=== PATIENT | female | born 1950 | race Caucasian/White ===

== ENCOUNTER → 2017-03-23 | Outpatient (CLI) | payer BC ==
[~2017-03-23] MED LIST: AMLO10TA2 PO; APIX5TAB PO; CARV-39 PO; ESCI10TA10 PO; FURO40TA6 PO; LISI-170 PO; POTA20TA14 PO
== END | disposition home or self-care (01) ==
LOC: CVU 07:37
PROVIDERS: ATTEND Internal Medicine Cardiovascular Disease
DX: I51.7 Cardiomegaly (principal); I48.0 Paroxysmal atrial fibrillation
CPT/HCPCS: C8929

== ENCOUNTER → 2018-06-24 | Outpatient (CLI) | payer BC ==
[~2018-06-24] MED LIST changes: -AMLO10TA2 PO; +AMLO10TA8 PO; +REGADENOSON 0.4 MG/5 ML SYRINGE ONE
== END | disposition home or self-care (01) ==
LOC: CFH 07:31
PROVIDERS: ATTEND Internal Medicine Cardiovascular Disease
DX: I11.0 Hypertensive heart disease with heart failure (principal); I48.0 Paroxysmal atrial fibrillation
CPT/HCPCS: 78452; 93017; A9502; J2785

== ENCOUNTER 2018-07-08 08:54 | Day surgery (SDC) | payer BC ==
[~2018-07-08] VITALS: Ht 170.2 cm; Wt 149.5 kg
[~2018-07-08 08:54] MED LIST changes: -REGADENOSON 0.4 MG/5 ML SYRINGE ONE
[2018-07-08 09:17] VITALS: BP 131/65
[2018-07-08] MEDS ORDERED: PROPOFOL 10 MG/ML, 20ML ONE (15:37)
== END 2018-07-08 12:04 | disposition home or self-care (01) ==
LOC: CACL 08:54
PROVIDERS: ATTEND Internal Medicine Cardiovascular Disease
DX: I48.91 Unspecified atrial fibrillation (principal); F17.210 Nicotine dependence, cigarettes, uncomplicated; I48.0 Paroxysmal atrial fibrillation; E66.01 Morbid (severe) obesity due to excess calories; I11.0 Hypertensive heart disease with heart failure; I50.32 Chronic diastolic (congestive) heart failure; E78.5 Hyperlipidemia, unspecified; Z86.73 Personal history of transient ischemic attack (TIA), and cerebral infarction without residual deficits; Z79.01 Long term (current) use of anticoagulants; Z68.43 Body mass index [BMI] 50.0-59.9, adult
CPT/HCPCS: 92960; 93005; J2704

== ENCOUNTER 2018-10-10 18:47 | Emergency (ER) | payer BC, MEDICARE ==
[~2018-10-10] VITALS: Ht 172.7 cm; Wt 158.1 kg
[2018-10-10 18:52] VITALS: BP 182/76
== END 2018-10-10 20:25 | disposition home or self-care (01) ==
LOC: ED 19:33
DX: S80.02XA Contusion of left knee, initial encounter (principal); I10 Essential (primary) hypertension; W13.3XXA Fall through floor, initial encounter; Y93.01 Activity, walking, marching and hiking; Y92.009 Unspecified place in unspecified non-institutional (private) residence as the place of occurrence of the external cause; Y99.8 Other external cause status
CPT/HCPCS: 99283

== ENCOUNTER 2018-10-13 16:00 | Emergency (ER) | payer BC ==
[~2018-10-13] VITALS: Ht 170.2 cm; Wt 165.0 kg
[2018-10-13 16:03] VITALS: BP 136/61
[2018-10-13 17:02] LABS: BASOPHILS # (AUTO) 0.02 x10^3/uL (0-0.1); BASOPHILS % (AUTO) 0 % (0-1); EOSINOPHILS # (AUTO) 0.35 x10^3/uL (0-0.4); EOSINOPHILS % (AUTO) 5 % (1-7); LYMPHOCYTES # (AUTO) 0.98 x10^3/uL (1-3.4); LYMPHOCYTES % (AUTO) 13 % (22-44); MD NO; MEAN CORPUSCULAR HEMOGLOBIN 29.3 pg (27.0-34.8); MEAN CORPUSCULAR HGB CONC 32.6 g/dL (32.4-35.8); MEAN CORPUSCULAR VOLUME 89.9 fL (80-100); MEAN PLATELET VOLUME 10.1 fL (7.4-10.4); MONOCYTES % (AUTO) 5 % (2-9); NEUTROPHILS # (AUTO) 5.94 x10^3/uL (1.8-6.8); NEUTROPHILS % (AUTO) 77 % (42-75); PLATELET COUNT 200 x10^3/uL (130-400); RED BLOOD COUNT 4.29 x10^6/uL (3.82-5.3); RED CELL DISTRIBUTION WIDTH 14.5 % (9.6-15.2)
[2018-10-13 17:07] LABS: ALBUMIN 3.4 g/dL (3.4-5.0); ANION GAP 4 mmol/L (5-15); CALCIUM 8.9 mg/dL (8.5-10.1); CHLORIDE 107 mmol/L (98-107)
[2018-10-13 17:09] LABS: CREATININE 0.83 mg/dL (0.55-1.02)
--- NOTE | 2018-10-13 17:21 | NUR ---
CLEANER TOUCH UP WORKER: PT RETURNING FROM US, TO BE TAKEN TO ED ROOM 33
--- NOTE | 2018-10-13 17:24 | NUR ---
DIRECTOR FRANCHISE SALES: PT TO ROOM 35
--- NOTE | 2018-10-13 17:29 | NUR ---
PT ROOMED POST CT. ASSUMED CARE OF PT AT THIS TIME
== END 2018-10-13 18:32 | disposition home or self-care (01) ==
LOC: ED 17:52
DX: S80.02XA Contusion of left knee, initial encounter (principal); M70.42 Prepatellar bursitis, left knee; I10 Essential (primary) hypertension; Z87.891 Personal history of nicotine dependence; W18.39XA Other fall on same level, initial encounter; Y93.89 Activity, other specified; Y92.89 Other specified places as the place of occurrence of the external cause; Y99.8 Other external cause status
CPT/HCPCS: 36415; 80048; 82040; 85025; 99284

== ENCOUNTER 2018-10-26 08:38 | Inpatient (IN) | payer BC, MEDICARE ==
[~2018-10-26] VITALS: Ht 170.2 cm; Wt 154.9 kg
[2018-10-26 09:18] LABS: BASOPHILS # (AUTO) 0.02 x10^3/uL (0-0.1); BASOPHILS % (AUTO) 0 % (0-1); EOSINOPHILS # (AUTO) 0.06 x10^3/uL (0-0.4); EOSINOPHILS % (AUTO) 0 % (1-7); LYMPHOCYTES # (AUTO) 0.41 x10^3/uL (1-3.4); LYMPHOCYTES % (AUTO) 3 % (22-44); MD NO; MEAN CORPUSCULAR HEMOGLOBIN 28.5 pg (27.0-34.8); MEAN CORPUSCULAR HGB CONC 32.5 g/dL (32.4-35.8); MEAN CORPUSCULAR VOLUME 87.9 fL (80-100); MEAN PLATELET VOLUME 9.2 fL (7.4-10.4); MONOCYTES # (AUTO) 0.37 x10^3/uL (0.2-0.8); MONOCYTES % (AUTO) 3 % (2-9); NEUTROPHILS # (AUTO) 12.69 x10^3/uL (1.8-6.8); NEUTROPHILS % (AUTO) 94 % (42-75); PLATELET COUNT 311 x10^3/uL (130-400); RED BLOOD COUNT 4.78 x10^6/uL (3.82-5.3); RED CELL DISTRIBUTION WIDTH 13.5 % (9.6-15.2)
[2018-10-26 09:24] LABS: ALBUMIN 3.2 g/dL (3.4-5.0); ANION GAP 7 mmol/L (5-15); CALCIUM 9.1 mg/dL (8.5-10.1); CHLORIDE 108 mmol/L (98-107)
[2018-10-26 09:28] LABS: ALANINE AMINOTRANSFERASE 15 U/L (12-78); ALKALINE PHOSPHATASE 97 U/L (45-117); TOTAL PROTEIN 7.2 g/dL (6.4-8.2)
--- NOTE | 2018-10-26 09:28 | NUR ---
REROLLER HAND: PT TO ED ROOM 15 VIA WHEELCHAIR AT THIS TIME
--- NOTE | 2018-10-26 09:37 | NUR ---
PT AMBULATED TO BED. PT DENIES ANY PAIN, RESTING COMFORTABLE IN BED. ACCOMAPNIED BY FAMILY. AWAITING MD ORDERS. PT HAS CO OF RIGHT LOWER LEG PAIN FROM FALL 3 WEEKS AGO. STATES "PT FRACTURED KNEE" RIGHT LOWER LEG SWOLLEN EDEMA 3+, RED CELLULITIS, LARGE OLD SCAB OVER KNEE. PEDAL PULSE WEAK.
[2018-10-26] MEDS ORDERED: HYDROmorphone 2 MG/ML, 1ML IVPush PRN (10:30)
[2018-10-26] MEDS ORDERED: SODIUM CHLORIDE 0.9% 1,000ML IVBOLUS ONE (10:30)
[2018-10-26] MEDS ORDERED: SODIUM CHLORIDE FLUSH 10ML SYR IVF ONE (10:30)
[2018-10-26] MEDS ORDERED: ONDANSETRON 2MG/ML, 2ML IVPush ONE (10:30)
--- NOTE | 2018-10-26 11:15 | NUR ---
PT IN IMAGING VIA WHEELCHAIR. PT DOES NOT APPEAR IN PAIN OR DISTRESS.
--- NOTE | 2018-10-26 11:16 | NUR ---
PT WAS ABLE TO AMBULATED TO BATHROOM BUT UNABLE TO COLLECT STOOL OR UA SAMPLE. PT WILL LET RN AWARE WHEN NEED TO USE BATHROOM.
[2018-10-26] MEDS ORDERED: OMNIPAQUE 350 MG/ML, 150 ML BOTTLE ONE (11:29)
[2018-10-26] MEDS ORDERED: ONDANSETRON 2MG/ML, 2ML ONE (11:59)
--- NOTE | 2018-10-26 12:18 | NUR ---
PT WAS UNABLE TO VOID. WILL STRAIGHTCATH. DENIES ABDOMINAL PAIN AT THIS TIME. DIEGO HUTCHINSON ASSISTING W CATH. PT COMFORTABLE.
[2018-10-26 12:59] LABS: CULTURE INDICATED? NO; MICROSCOPIC NOT IND
[2018-10-26] MEDS ORDERED: ONDANSETRON 2MG/ML, 2ML IVPush PRN (14:00)
[2018-10-26] MEDS ORDERED: LABETALOL 5 MG/ML SYRINGE IVPush PRN (14:00)
[2018-10-26] MEDS ORDERED: ONDANSETRON ODT 4 MG PO PRN (14:00)
[2018-10-26 14:47] VITALS: BP 95/59
[2018-10-26] MEDS ORDERED: TRAM50TA2 PO (16:15)
[2018-10-26] MEDS ORDERED: CEPH-376 PO (16:15)
[2018-10-26] MEDS ORDERED: IBUP-1222 PO (16:15)
[2018-10-26] MEDS ORDERED: PHARMACY MAY ADJ FOR RENAL FX MC PRN (16:30)
[2018-10-26 16:50] VITALS: BP 107/63
[2018-10-26] MEDS: SODIUM CHLORIDE 0.9% 1,000 ML IV SCH (16:50)
[2018-10-26] MEDS ORDERED: CARVEDILOL 12.5 MG TABLET PO SCH (17:00)
[2018-10-26] MEDS: VANCOMYCIN 50 MG/ML ORAL SUSP PO SCH ×2 (17:17→23:10)
[2018-10-26] MEDS: AMPICILLIN/SULBACTAM 3 GM in SODIUM CHLORIDE 0.9% 100 ML IV SCH (17:17)
[2018-10-26] MEDS: PANTOPRAZOLE 40 MG IV IVPush SCH (17:17)
[2018-10-26] MEDS: CARVEDILOL 25 MG TABLET PO SCH (17:18)
[2018-10-26 17:44] LABS: CLOSTRIDIUM DIFFICILE ANTIGEN NEGATIVE; CLOSTRIDIUM DIFFICILE TOXIN NEGATIVE (Negative)
[2018-10-26 20:09] VITALS: BP 105/46
[2018-10-26] MEDS: LISINOPRIL 10 MG TABLET PO SCH (20:29)
[2018-10-26] MEDS: APIXABAN 5 MG TABLET PO SCH (20:29)
[2018-10-26] MEDS: DOXYCYCLINE 100MG TABLET PO SCH (20:30)
[2018-10-26] MEDS ORDERED: LISINOPRIL 20 MG TABLET PO SCH (21:00)
[2018-10-27] MEDS: AMPICILLIN/SULBACTAM 3 GM in SODIUM CHLORIDE 0.9% 100 ML IV SCH ×2 (01:19→09:06)
[2018-10-27] MEDS: SODIUM CHLORIDE 0.9% 1,000 ML IV SCH ×2 (01:19→09:07)
[2018-10-27 01:34] VITALS: BP 100/63
[2018-10-27] MEDS: PANTOPRAZOLE 40 MG IV IVPush SCH (04:59)
[2018-10-27] MEDS: VANCOMYCIN 50 MG/ML ORAL SUSP PO SCH (05:00)
[2018-10-27 05:03] LABS: ALBUMIN 2.7 g/dL (3.4-5.0); ANION GAP 7 mmol/L (5-15); CALCIUM 8.6 mg/dL (8.5-10.1); CHLORIDE 108 mmol/L (98-107)
[2018-10-27 05:06] LABS: ALANINE AMINOTRANSFERASE 12 U/L (12-78); ALKALINE PHOSPHATASE 77 U/L (45-117); BILIRUBIN,TOTAL 0.5 mg/dL (0.2-1.0); CREATININE 1.44 mg/dL (0.55-1.02); TOTAL PROTEIN 6.1 g/dL (6.4-8.2)
[2018-10-27 05:08] LABS: BASOPHILS # (AUTO) 0.03 x10^3/uL (0-0.1); BASOPHILS % (AUTO) 0 % (0-1); EOSINOPHILS # (AUTO) 0.21 x10^3/uL (0-0.4); EOSINOPHILS % (AUTO) 3 % (1-7); LYMPHOCYTES # (AUTO) 1.01 x10^3/uL (1-3.4); LYMPHOCYTES % (AUTO) 12 % (22-44); MD NO; MEAN CORPUSCULAR HEMOGLOBIN 29.4 pg (27.0-34.8); MEAN CORPUSCULAR HGB CONC 32.5 g/dL (32.4-35.8); MEAN CORPUSCULAR VOLUME 90.4 fL (80-100); MEAN PLATELET VOLUME 9.1 fL (7.4-10.4); MONOCYTES # (AUTO) 0.62 x10^3/uL (0.2-0.8); MONOCYTES % (AUTO) 8 % (2-9); NEUTROPHILS # (AUTO) 6.48 x10^3/uL (1.8-6.8); NEUTROPHILS % (AUTO) 78 % (42-75); PLATELET COUNT 248 x10^3/uL (130-400); RED BLOOD COUNT 3.72 x10^6/uL (3.82-5.3); RED CELL DISTRIBUTION WIDTH 13.7 % (9.6-15.2)
[2018-10-27] MEDS ORDERED: PANTOPRAZOLE 40 MG IV IVPush SCH (07:30)
[2018-10-27 07:51] VITALS: BP 93/56
[2018-10-27] MEDS: CARVEDILOL 25 MG TABLET PO SCH (08:00)
[2018-10-27] MEDS: LISINOPRIL 10 MG TABLET PO SCH (08:16)
[2018-10-27] MEDS: APIXABAN 5 MG TABLET PO SCH (08:16)
[2018-10-27] MEDS: DOXYCYCLINE 100MG TABLET PO SCH (08:16)
[2018-10-27] MEDS ORDERED: PHARMACY MAY ADJ FOR RENAL FX MC PRN (09:00)
[2018-10-27] MEDS ORDERED: CEFTRIAXONE PMX 2GM/50ML 50 ML IV SCH (10:00)
[2018-10-27] MEDS ORDERED: METRONIDAZOLE PMX 500MG/100ML 100 ML IV SCH (11:00)
[2018-10-27] MEDS ORDERED: DIPHENHYDRAMINE 50 MG/ML, 1ML IVPush ONE (11:30)
[2018-10-27] MEDS ORDERED: FAMOTIDINE 20 MG/2 ML IVPush SCH (12:00)
[2018-10-27 13:10] VITALS: BP 90/52
[2018-10-27] MEDS ORDERED: CARV-39 PO (14:39)
[2018-10-27] MEDS ORDERED: AMOX1TAB64 PO (14:39)
[2018-10-27] MEDS ORDERED: METR500T PO (14:39)
[2018-10-27] MEDS ORDERED: DOXY100T PO (14:39)
[2018-10-27] MEDS ORDERED: LISI-167 PO (14:39)
[2018-10-27] MEDS ORDERED: CARVEDILOL 25 MG TABLET PO SCH (17:00)
== END 2018-10-27 16:15 | disposition home or self-care (01) | DRG 683 ==
LOC: ED 09:43 → EDIP 12:28 → 4NOR 14:46 → DCLOUNGE 10-27 16:07
PROVIDERS: ADMIT Hospitalist; ATTEND Hospitalist
DX: N17.9 Acute kidney failure, unspecified (principal); C22.0 Liver cell carcinoma; D68.69 Other thrombophilia; Z68.43 Body mass index [BMI] 50.0-59.9, adult; I50.32 Chronic diastolic (congestive) heart failure; L03.116 Cellulitis of left lower limb; K52.9 Noninfective gastroenteritis and colitis, unspecified; E66.01 Morbid (severe) obesity due to excess calories; E86.0 Dehydration; I11.0 Hypertensive heart disease with heart failure; I48.91 Unspecified atrial fibrillation; I95.9 Hypotension, unspecified; R74.0 Nonspecific elevation of levels of transaminase and lactic acid dehydrogenase [LDH]; M17.12 Unilateral primary osteoarthritis, left knee; Z79.01 Long term (current) use of anticoagulants; Z86.73 Personal history of transient ischemic attack (TIA), and cerebral infarction without residual deficits; Z87.891 Personal history of nicotine dependence; Z90.49 Acquired absence of other specified parts of digestive tract
CPT/HCPCS: 36415; 74021; 99285; J3370; J3490; 74177; 80053; 81003; 82570; 83690; 83735; 84100; 84300; 85025; 87040; 87324; 89055; 96374; G0378; J0295; J0696; J2405; Q9967; C9113; J1200; J7030

== ENCOUNTER → 2020-04-24 | Outpatient (CLI) | payer BC, MEDICARE, OTHER ==
[~2020-04-24] MED LIST changes: +AMLO-211 PO; -AMLO10TA8 PO; +AMOX1TAB64 PO; +CEPH-376 PO; +DOXY100T PO; +IBUP-1222 PO; +LISI-167 PO; +METR500T PO; +TRAM50TA2 PO
== END | disposition home or self-care (01) ==
LOC: CVU 08:25
PROVIDERS: ATTEND Internal Medicine Cardiovascular Disease
DX: I36.1 Nonrheumatic tricuspid (valve) insufficiency (principal); I11.0 Hypertensive heart disease with heart failure; I50.32 Chronic diastolic (congestive) heart failure
CPT/HCPCS: C8929; Q9957